=== PATIENT | female | born 1985 | race Two or more races ===

== ENCOUNTER 2024-01-27 15:54 | Emergency (ER) | payer MEDICAID, SELFPAY ==
[2024-01-27 16:03] VITALS: BP 162/122; BP 165/111; PULSE 105; RESP 20; TEMP 36.7; O2SAT 100; BMI 28.9
[2024-01-27] MEDS: predniSONE 20 MG TABLET 60 MG PO (16:20)
[2024-01-27] MEDS: DiphenhydrAMINE 25 MG CAPSULE 50 MG PO (16:21)
--- NOTE | 2024-01-27 17:01 | PD.EDALLER ---
ED Allergic Reaction RME/HPI General Chief complaint: Allergic Reaction Stated complaint: ALLERGIC REACTION TO EATING CLAMS Time Seen by Provider: 01/27/24 16:17 Source: patient Arrival date/time: 01/27/24 15:54 This is a 38-year-old female presents to the emergency department with complaints of rash itchiness hives status post eating clams chowder at work. She does report she has a history of allergies to clams however distilled decided to eat clam chowder. Patient did not attempt any interventions or take any OTC medications prior to ED visit. Patient denies any other associated symptoms or aggravating factors. No modifying factors, no radiation, no migration. Mode of arrival: ambulatory Related Data Previous Rx's ?Medication ?Instructions ?Recorded prednisone 20 mg tablet 40 mg (2 x 20 mg) PO QDAY 3 days 01/27/24 #6 tabs Allergies Allergy/AdvReac Type Severity Reaction Status Date / Time clams Allergy Severe Hives Verified 01/27/24 15:57 Review of Systems Review of Systems Systems Reviewed: All systems reviewed, normal except as documented Narrative Review of Systems: Gen: No fever, no chills, no weight loss EYES: No discharge, no visual changes, no pain HEENT: No ear pain, no congestion, no sore throat PULM: No shortness of breath, no cough, no congestion CV: No chest pain, no dyspnea on exertion, no palpitations GI: No nausea, no vomiting, no diarrhea, no pain, no constipation : No frequency, no urgency, no dysuria Musc/skel: No joint pain, no back pain Skin: No rash Psyc: No hallucinations, no depression Heme/Lymph: No easy bleeding or bruising tendencies Neuro: No weakness, no headache ED Exam Narrative Physical exam: General: Sittiing in Exam table in no acute distress, answering questions appropriately HENT: normocephalic, atraumatic, EOMI, PERRLA, moist mucous membranes, no oral airway involvement. Chest: chest wall is nontender Cardiac: regular rate and rhythm, normal S1 and S2, no murmurs, rubs, or gallops, capillary refill ?2 seconds Pulmonary: clear to auscultation bilaterally, no wheezing, crackles, or rhonchi Abdominal: active bowel sounds, soft, nontender, nondistended Neuro: A&OX3, CN II-XII intact, sensation grossly intact bilaterally in UE and LE. Skin: Mild hives noted to bilateral forearms Ext: no lower extremity edema Course Quality Measures none Orders Category Date Time Status DiphenhydrAMINE [Benadryl] Med 01/27/24 16:16 Discontinued 50 mg PO X1 ONE predniSONE Med 01/27/24 16:16 Discontinued 60 mg PO X1 ONE Vital Signs Vital signs: Vital Signs Temperature 98.0 F 01/27/24 16:03 Pulse Rate 105 H 01/27/24 16:03 Respiratory Rate 20 01/27/24 16:03 Blood Pressure 165/111 H 01/27/24 16:03 Pulse Oximetry (%) 100 01/27/24 16:03 Oxygen Delivery Method Room Air 01/27/24 16:03 Allergic Reaction Patient data External records reviewed:: [facility] previous records Clinical information provided by:: patient Social determinants that could affect healthcare access:: none Patient has the following chronic illnesses:: htn How is presenting disease/condition affected by chronic disease/condition?: uneffected by Evaluation data The following diagnostics were reviewed and interpreted by me:: other (specify) Lab and/or radiology exams considered but not ordered:: no Interpretation Summary: no Medications / Prescriptions Medications or Prescriptions considered but not ordered:: no Medication administrations:: Medication Administration History Discontinued Medications Diphenhydramine HCl (Diphenhydramine 25 Mg Capsule) 50 mg PO X1 ONE Stop: 01/27/24 16:17 Last Admin: 01/27/24 16:21 Dose: 50 mg Documented By: OA Prednisone (Prednisone 20 Mg Tablet) 60 mg PO X1 ONE Stop: 01/27/24 16:17 Last Admin: 01/27/24 16:20 Dose: 60 mg Documented By: OA All medications administered and effective Consultations Consultation(s) initiated? (list below): No Diagnosis Differential Diagnosis allergic reaction: anaphylaxis, allergic reaction, angioedema, contact dermatitis, adverse reaction to drug, viral enanthem and urticaria Most likely diagnosis given after review of the tests above:: Allergic reaction Admission Indicated Admission indicated?: not indicated Admission Request Was there a request for admission?: No Disposition Plan Disposition Plan: Discharge Discharge Attestation Discharge Attestation: The patient and all family members were given an opportunity to ask questions and understood the discharge instructions. Discharge instructions specifically effects, indications for sooner follow up or return to the emergency department, and the expected course of current diagnosis. Patient condition: Stable Discharge Plan Plan Patient Disposition: HOME (Self Care) Patient condition on transfer: Stable Prescriptions/Referrals Prescriptions/Med Rec: New prednisone 20 mg tablet 40 mg PO QDAY 3 Days Qty: 6 0RF Referrals: Kevin Santoro MD [Primary Care Provider] - In 1 week Problem List Clinical Impression: Allergic reaction Patient/Caregiver Discharge Instructions Discharge Activity: activity as tolerated Education Materials: ED Medicine Reaction: Allergic Additional Instructions: You were evaluated today for allergic reaction. - You were prescribed antihistamines, example Benadryl and steroids that will help reduce your symptoms. You might need to identify it and avoid allergens that cause a reaction in 2 days occasion it was a bee sting when to return to the emergency department or call 911 difficulty breathing, wheezing , and S2 chest, swelling to face lips and tongue or throat please make sure you schedule a follow-up appointment with your primary care physician or associate professor of geography to discuss further testing or long-term management of allergies. Print Language: Salvadorean Stand Alone Forms: Maryellen Award Info., Patient Portal Info Letter PA/PIPELINE ENGINEER Supervising Physician ARIAS/RON Supervising Physician: dr. Issa
== END 2024-01-27 17:36 | disposition home or self-care (01) ==
PROVIDERS: Emergency Provider Emergency Medicine; PCP Family Medicine
DX: T78.1XXA Other adverse food reactions, not elsewhere classified, initial encounter (principal); L50.9 Urticaria, unspecified; X58.XXXA Exposure to other specified factors, initial encounter
CPT/HCPCS: 99282; J7512; A9270